=== PATIENT | male | born 1965 | race Caucasian/White ===

== ENCOUNTER 2022-12-22 07:39 | Outpatient (OUT) | payer OTHER, SELFPAY ==
[2022-12-22 08:00] LABS: Basophils Percent Auto 0.3 % (0.2-2.0); Eosinophils Absolute Auto 0.2 10^3/uL (0.0-0.7); Eosinophils Percent Auto 2.6 % (0.9-7.0); Immature Granulocytes Abs Auto 0.01 10^3/uL (0.00-0.03); Immature Granulocytes Pct Auto 0.2 % (0.0-0.5); Lymphocytes Absolute Auto 1.9 10^3/uL (1.2-3.8); Lymphocytes Percent Auto 30.8 % (20.5-60.0); Mean Corpuscular HGB Conc 34.8 g/dL (29.9-35.2); Mean Corpuscular Hemoglobin 31.2 pg (25.9-34.0); Mean Corpuscular Volume 89.7 fL (80.0-94.0); Mean Platelet Volume 9.4 fL (9.5-13.5); Monocytes Absolute Auto 0.5 10^3/uL (0.3-0.8); Neutrophils Absolute Auto 3.6 10^3/uL (1.4-6.5); Neutrophils Percent Auto 58.1 % (43.0-75.0); Platelet Count 186 10^3/uL (150-450); Red Blood Count 5.13 10^6/uL (4.70-6.10); Red Cell Distribution Width 11.6 % (11.0-15.0); White Blood Count 6.1 10^3/uL (4.0-11.0)
[2022-12-22 08:48] LABS: Alanine Aminotransferase 35 U/L (16-63); Albumin Globulin Ratio 1.4; Albumin Level 4.4 g/dL (3.4-5.0); Alkaline Phosphatase 52 U/L (46-116); Aspartate Amino Transferase 14 U/L (15-37); BUN Creatinine Ratio 12.1; Bilirubin Total 0.9 mg/dL (0.2-1.0); Carbon Dioxide 28.3 mmol/L (21.0-32.0); Chloride 103 mmol/L (98-107); Chol HDL Ratio 3.7; Cholesterol 186 mg/dL (<=200); Estimated GFR (African America >60 (>=60); Estimated GFR (Non-African Ame >60 (>=60); Globulin 3.1 g/dL; Glucose 95 mg/dL (74-106); HDL Cholesterol 50 mg/dL (40-60); LDL Cholesterol Calculated 111.6 mg/dL; Potassium 4.3 mmol/L (3.5-5.1); Sodium 140 mmol/L (136-145); Total Protein 7.5 g/dL (6.4-8.2); Triglycerides 122 mg/dL (<=150); VLDL CHOLESTEROL 24.4 mg/dL
[2022-12-22 08:55] LABS: Prostate Specific Antigen Scrn 0.62 ng/mL (<=4.00)
== END 2022-12-22 07:40 | disposition home or self-care (01) ==
PROVIDERS: PCP Internal Medicine; Visit Provider Internal Medicine
DX: Z00.00 Encounter for general adult medical examination without abnormal findings (principal); Z12.5 Encounter for screening for malignant neoplasm of prostate; Z13.0 Encounter for screening for diseases of the blood and blood-forming organs and certain disorders involving the immune mechanism; Z13.228 Encounter for screening for other metabolic disorders; Z13.220 Encounter for screening for lipoid disorders
CPT/HCPCS: 36415; 80053; 80061; 85025; G0103

== ENCOUNTER 2025-01-06 06:31 | Outpatient (OUT) | payer OTHER, SELFPAY ==
--- OUTSIDE RECORDS SUMMARY | 2025-01-06 06:36 | XMS_ITS | CCD ---
Author Organization [facility] Care Team Providers Care Hip Hop Artist Name Role Phone Ale Neal Unavailable [phone] Ale Neal APRN Primary Care Provider Ale Neal APRN Attending Provider [phone] Medications Completed/Discontinued Medications MedicationDrug Class(es)DatesSig (Normalized)Sig (Original)predniSONE 10 mg oral tablet (2 sources)Start: 04-20-2024 End: 22-03-4661tghq 0.5 tablet by mouth once dailyPrednisone 10 mg tablet Discontinued 10 MG PO daily April 20, 2024 1:00am November 10, 2024 1:36pm Take 40 mg for 2 days, 30 mg for 2 days, 20 mg for 2 days, 10 mg for 2 days, 1/2 tablet for 2 days Problems Active Problems Problem ClassificationProblemDateDocumented DateEpisodic/ChronicOther and unspecified benign neoplasm (2 sources)Melanocytic nevus; Translations: [Melanocytic nevi, unspecified] 98-04-1138HksngayfCglvp connective tissue disease (1 source)Medial epicondylitis of right humerus; Translations: [Medial epicondylitis, right elbow]57-83-8286NxwbxmfxEzamr screening for suspected conditions (not mental disorders or infectious disease) (6 sources)Encounter for screening for diseases of the blood and blood-forming organs and certain disorders involving the immune mechanism; Translations: [Encounter for screening for other metabolic disorders]EpisodicResidual codes; unclassified (2 sources)MMR vaccination status; Translations: [Other specified health status] 22-23-2770Gpbbsecu Past or Other Problems Problem ClassificationProblemDateDocumented DateEpisodic/ChronicUnclassified (1 source)Chronic cough R05.3 Vital Signs Date TimeVital SignValuePerforming QlqtdwskeZhzlhuuf11-06-6227 15:33-0400Body tpwxoz427.88 cmAle Neal [employer] Work Phone: [facility]09-09-2025 15:33-0400 Body mass index (BMI) [Ratio]27.9 kg/b4ZdcaasrnAle Neal [employer] Work Phone: [phone]09-09-2025 15:33-0400 Body hqosskpzout91 [degF]Ale Rubalcavalacho [employer] Work Phone: [phone]09-09-2025 15:33-0400 Body sapiob30.44 kgAle Neal [employer] Work Phone: [phone]09-09-2025 15:33-0400 Diastolic blood yyifuooy82 mm[Hg]Ale Rubalcavagarlandauerliadebbie [employer] Work Phone: [phone]60[facility]09-09-2025 15:33-0400 Heart rate76 /minAle Neal [employer] Work Phone: [phone]09-09-2025 15:33-0400 SaO2% (BldA) [Mass fraction]96 %Ale Rubalcavalacho [employer] Work Phone: [phone]09-09-2025 15:33-0400 Systolic blood mm[Hg]Ale Valderramadebbie [employer] Work Phone: [phone]02-17-2025 09:07-0500 Body zviciu294.88 cmProm[facility]02-17-2025 09:07-0500Body mass index (BMI) [Ratio]27.8 kg/g7GwbrcomhpProm[facility]ica [facility] Hospital02-17-2025 09:07-0500Body yvbnzuwovgq76 [degF][facility]02-17-2025 09:07-0500Body ofigya82.98 kgPromedica [facility] Hospital02-17-2025 09:07-0500Diastolic blood qtiidmgq53 mm[Hg][facility] 04-20-2024 09:07-0500Heart rate89 /minPromedica Defiance Regional Hospital 04-20-2024 09:07-4552GdC9% (BldA) [Mass fraction]97 %[facility]02-17-2025 09:07-0500Systolic blood uvxaydgn840 mm[Hg][facility]10-16-2023 16:00-0400Body eveicm710.88 cmXueugene Neal Other [facility] Other 10-16-2023 16:00-0400Body mass index (BMI) [Ratio] 28.97 kg/l3Nuptmaspeugene Neal Other [facility] Other 10-16-2023 16:00-0400Body .89 kgXueugene Neal Other [facility] Other 10-16-2023 16:00-0400Diastolic blood frppaxyb16 mm[Hg] Ale Val Other [facility] Other 10-16-2023 16:00-0400Respiratory rate12 /joshuaAle Neal Other [facility] Other 10-16-2023 16:00-0400Systolic blood jtcijsji172 mm[Hg] Ale Val Other [facility] Other Encounters Encounter DateEncounter TypeCare ProviderFacilityStart: 11-10-2024 End: 60-45-6083jruybrykclZonlgehd Rohrbacher [employer] Work Phone: [facility] Work Phone: start: 11-10-2024 End: 23-42-5061Nybeigu encounter procedureAle Nuracher [employer] [facility] Work Phone: Start: 11-10-2024 End: 75-98-6866Nszrnoz encounter statusAle Valderramar [employer] [facility] 04-20-2024 End: 74-18-3893wmmljheatxWtbtmbsbdK[facility] Work Phone: Start: 04-20-2024 End: 32-28-7270Qvtawjn encounter procedureUn[facility] Work Phone: Start: 01-09-2023 End: 12-78-3317wefhiyvuqeLqhacepm Rohrbacher Other [facility] Other Start: 96-35-4968Nrpiaucwm encounterJeeugene MoctezumaWright-Patterson Medical Centertart: 12-24-2022 End: 02-04-3734cvvsiwuwtcGgqjqfuw Rohrbacher Other [facility] Other Start: 21-26-9122Prxtufeyq encounterJeeugene MoctezumaWright-Patterson Medical Centertart: 12-17-2022 End: 20-74-6060emfcpbmmymJaevmjsp Rohrbacher Other [facility] Other Start: 65-42-6873Gkoxlmiut for general adult medical examination without abnormal findingsAle MoctezumaUniversity Hospitals [facility] Start: 34-81-1883Vjhospn preventive medicine new patient 40-64yrsAle ValderramaCampbell County Memorial Hospital Plan of Treatment DateCare ActivityDetailAuthorComprehensive metabolic 2000 panel - Serum or PlasmaTampa [facility] Immunizations Immunization DateImmunizationNotesCare BlywqfoqGnshsijz14-37-3622rvyrnuw toxoid, reduced diphtheria toxoid, and acellular pertussis vaccine, Thao Neal APRN Work Phone: [facility] Payers DatePayer CategoryPayerPolicy IDPrivate Health [id number] Health InsuranceAetna Insurance [id number] Health InsuranceAetna Insurance Co [id number] Social History DateTypeDetailFacilitySex Assigned At [facility] [employer] Other Start: 04-20-2024 End: 81-46-5137Kfwizhm smoking status NHISNever smoked tobacco (finding) [facility] 24-30-0731YnvHbxd (finding)[facility]: 91-02-2971Qfx Assigned At [facility] Evaluation note 12-17-2022 Note Date & VferRsniKuwoogse56-02-2494 Evaluation note* Encounter Date Diagnosis Assessment Notes Treatment Notes Treatment Clinical Notes Dec, Wellness examination (ICD-10 - Z 00.00) Personalized health advice was given to the beneficiary including a written plan for screenings discussed and provided. Advanced care planning reviewed and/or information given as requested. Additional counseling was provided here today in regards to general topics regarding health education were discussed in detail. All preventative issues were discussed including remaining a nonsmoker, colorectal screening, the importance of proper sleep for brain health maintenance, maintaining a heart-healthy balanced diet, recognizing and addressing signs of anxiety and depression, maintaining positive relationships with family and friends. Dec,Screening for deficiency anemia (ICD-10 - Z13.0)will call lab and diagnostic results and recommendations Dec,Screening for metabolic disorder (ICD-10 - Z13.228) Dec,Screening for lipid disorders (ICD-10 - Z13.220) Dec,Screening for colon cancer (ICD-10 - Z12.11)Discussed with patient the colon cancer screening options including cologuard and colonoscopy. Risks and benefits of each discussed. Patient opts for cologuard screening. Dec,Screening for prostate cancer (ICD-10 - Z12.5)Risks and benefits of PSA screening discussed with patient today. Patient wishes to get PSA screening done. PSA screening lab ordered today. Dec,hronic cough (ICD-10 - R05.3)Advised patient to begin using OTC Claratin once daily. Also encouraged patient to begin using OTC Nasacort or Flonase nasal spray as directed. Symptoms are consistent with allergic rhinitis. No signs of bacterial infection on exam today. Educated patient that allergy symptoms are not always causedby pollen but can also be caused by dust, mold, and pet dander. Wash linens and vacuum often to decrease the amount of dust and dander the patient is exposed to. Use Tylenol/ibuprofen as directed forgeneral discomfort. Call is no improvement and can proceed with further testing. Patient verbalizedunderstanding and agreement with tx plan. [facility] [employer] Other Evaluation note Note Date & TypeNoteFacilityEvaluation noteNo InformationNortGuthrie Troy Community Hospital [employer] Other Evaluation note Note Date & TypeNoteFacilityEvaluation noteNo assessment information available [facility] Work Phone: Evaluation note Note Date & TypeNoteFacilityEvaluation note* Diagnosis Onset Date Resolution Status Admit Date Atypical mole acuteSept2024 3:31pmMeasles, mumps, rubella (MMR) vaccination status unknownacutept2024 3:31pmWellness examinationacuteSept2024 3:31pm [facility] Work Phone: Reason for referral (narrative) Note Date & TypeNoteFacilityReason for referral (narrative)No reason for referral information availableMercy Health St. [facility] Work Phone: Chief Complaint and Reason for Visit Chief Complaint Admit Date R Arm/Elbow Pain April 20, 2024 9:06am Chief Complaint Admit Date Wellness November 10, 2024 3:31pm Reason for Visit Admit Date Atypical mole November 10, 2024 3:31pm Measles, mumps, rubella (MMR) vaccinatio n status unknown November 10, 2024 3:31pm Wellness examination November 10, 2024 3:31pm Advance Directives Advance Directive Response Recorded Date/ Time Advance Directives No April 9:04am Advance Directive Response Recorded Date/ Time Advance Directives No April 10:04am Additional Source Comments REASON FOR VISIT (unrecogniz ed section and content) Check Uplab resultsCologuard results Care Teams (unrecognized sec tion and content) Team Status: Active Member Role Status Dates Ale Neal APRN EAR NOSE THROAT PHYSICIAN-C Primary Care Provider Active Team Status: Inactive Member Role Status Dates Ale Neal APRN EAR NOSE THROAT PHYSICIAN-C Primary Care Provider, Attending Provider Active Start: April 20, 2024 End: April 20, 2024 Team Status: Inactive Member Role Status Dates Ale Neal APRN EAR NOSE THROAT PHYSICIAN-C Primary Care Provider Active Start: November 102024 End: November 10, 2024Ale Neal APRN EAR NOSE THROAT PHYSICIAN-CAttending ProviderActive Start: November 10, 2024 End: November 10, 2024 Goals (unrecognized section and content) Goals may be documented in a n alternate section FOR RECORDS PERTAINING TO PATIENTS WHO ARE OR HAVE BEEN ENROLLED IN A CHEMICAL DEPENDENCY/SUBSTANCEABUSE PROGRAM, SOME INFORMATION MAY BE OMITTED. This clinical summary was aggregated from multiple sources. Caution should be exercised in using it in the provision of clinical care. This summary normalizes information from multiple sources, and as a consequence, information in this document may materially change the coding, format and clinical context of patient data. In addition, data may be omitted in some cases. CLINICAL DECISIONS SHOULD BE BASED ON THE PRIMARY CLINICAL RECORDS. [facility]. provides no warranty or guarantee of the accuracy or completeness of information in this document.
--- OUTSIDE RECORDS SUMMARY | 2025-01-06 06:37 | XMS_ITS | Clinical Summary ---
Author Organization [employer] [facility] tem Address [id number] [address] [place] [address] Care Team Providers Care Human Relations Teacher Name Role Phone Rashad Tejada MD Primary Care Provider [phone] Social History Tobacco UseTypesPacks/DayYears UsedDateSmoking Tobacco: Never AssessedChildcare AnswerDate GczrtlpcGmqxtekslBbdekth21/12/2019EmploymentAnswerDate Recorded OkwhymietvGcyotli20/12/2019Purpose - LifeAnswerDate RecordedPurpose and direction in izizXmmuprl23/11/2021ex and Gender InformationValueDate Recorded Sex Assigned at BirthNot on fileLegal QztKzfg3410/07/2014 11:30 AM EDTGender IdentityNot on fileSexual OrientationNot on file Plan of Treatment Not on file Medical Devices Not on file Insurance Care Teams Team MemberRelationshipSpecialtyStart DateEnd Date Rashad Tejada MD [address] [place] [address], [address] [place] [address] PCP - GeneralPediatric05/03/17
[2025-01-06 07:20] LABS: Hematocrit 46.5 % (42.0-54.0); Hemoglobin 16.4 g/dL (14.0-18.0); Immature Granulocytes Abs Auto 0.01 10^3/uL (0.00-0.03); Immature Granulocytes Pct Auto 0.2 % (0.0-0.5); Lymphocytes Absolute Auto 1.7 10^3/uL (1.2-3.8); Mean Corpuscular HGB Conc 35.3 g/dL (29.9-35.2); Mean Corpuscular Hemoglobin 31.4 pg (25.9-34.0); Mean Corpuscular Volume 88.9 fL (80.0-94.0); Platelet Count 196 10^3/uL (150-450); Red Blood Count 5.23 10^6/uL (4.70-6.10); White Blood Count 5.7 10^3/uL (4.0-11.0)
[2025-01-06 08:29] LABS: Alanine Aminotransferase 44 U/L (16-63); Albumin Globulin Ratio 1.4; Albumin Level 4.4 g/dL (3.4-5.0); Alkaline Phosphatase 52 U/L (46-116); Anion Gap 13.5; Aspartate Amino Transferase 19 U/L (15-37); Blood Urea Nitrogen 14.0 mg/dL (7.0-18.0); Calcium 9.3 mg/dL (8.5-10.1); Carbon Dioxide 27.8 mmol/L (21.0-32.0); Chloride 103 mmol/L (98-107); Cholesterol 195 mg/dL (<=200); Estimated GFR (African America >60 (>=60 mL/min/1.73m^2); Estimated GFR (Non-African Ame >60 (>=60 mL/min/1.73m^2); Globulin 3.1 g/dL; Glucose 100 mg/dL (74-106); HDL Cholesterol 45 mg/dL (40-60); Potassium 4.3 mmol/L (3.5-5.1); Sodium 140 mmol/L (136-145); Total Protein 7.5 g/dL (6.4-8.2); Triglycerides 137 mg/dL (<=150); VLDL CHOLESTEROL 27.4 mg/dL
[2025-01-07 08:09] LABS: Measles Antibodies, IgG <13.5 AU/mL (Immune >16.4); Mumps Abs, IgG <9.0 AU/mL (Immune >10.9); Rubella Antibodies, IgG 3.09 index (Immune >0.99)
== END 2025-01-06 06:32 | disposition home or self-care (01) ==
PROVIDERS: PCP Nurse Practitioner Family; Visit Provider Nurse Practitioner Family
DX: Z00.00 Encounter for general adult medical examination without abnormal findings (principal); Z78.9 Other specified health status; Z12.5 Encounter for screening for malignant neoplasm of prostate
CPT/HCPCS: 36415; 80053; 80061; 85025; 86735; 86762; 86765; G0103